=== PATIENT | female | born 1975 | race Caucasian/White ===

== ENCOUNTER 2017-05-26 14:26 | Emergency (ER) | payer BC, OTHER ==
[2017-05-26] MEDS ORDERED: Bicillin LA 1.2 MILLION UNITS/2 ML SYRINGE ONE (14:44)
== END 2017-05-26 14:57 | disposition home or self-care (01) ==
LOC: BURERS 14:26
DX: J02.0 Streptococcal pharyngitis (principal); G43.909 Migraine, unspecified, not intractable, without status migrainosus
CPT/HCPCS: 96372; J0561

== ENCOUNTER 2018-09-28 10:09 | Emergency (ER) | payer BC, OTHER ==
[2018-09-28] MEDS ORDERED: AMOXicillin 250 MG CAP ONE (11:02)
== END 2018-09-28 11:07 | disposition home or self-care (01) ==
LOC: BURERS 10:09
DX: J20.9 Acute bronchitis, unspecified (principal); G43.909 Migraine, unspecified, not intractable, without status migrainosus
CPT/HCPCS: 87804; 94640; J7620

== ENCOUNTER 2019-03-17 12:52 | Emergency (ER) | payer BC ==
[2019-03-17 13:15] LABS: Bilirubin Negative (Negative); Clarity Slightly Cloudy (Clear); Glucose, Urine (Dipstick) Negative (Negative); Leukocyte Small (Negative); Nitrite Negative (Negative); Protein, Urine (Dipstick) Negative (Neg-Trace); Urobilinogen 0.2 mg/dL (0.2-1.0)
[2019-03-17 13:16] LABS: Bacteria/HPF 1+ HPF (None Seen); Blood, Urine Small (Negative); RBC/HPF 0-3 HPF (0-3); WBC/HPF 0-3 HPF (0-3)
[2019-03-17] MEDS ORDERED: Ondansetron PF 4 MG/2 ML Vial ONE (13:38)
[2019-03-17] MEDS ORDERED: Ketorolac Tromethamine 30 MG/ML VIAL ONE (13:38)
[2019-03-17 14:10] LABS: ALT (SGPT) 20 U/L (8-55); AST (SGOT) 14 U/L (5-34); Albumin 4.5 g/dL (3.5-5.0); Alkaline Phosphatase 106 U/L (40-150); Anion Gap 15 mmol/L (10-20); BUN (Urea Nitrogen) 14 mg/dL (7.0-18.7); Bilirubin, Total 0.7 mg/dL (0.2-1.2); Calc. Creatinine Clearance 0 mL/min (70-130); Calcium 10.1 mg/dL (7.8-10.44); Carbon Dioxide 25 mmol/L (22-29); Chloride 103 mmol/L (98-107); Estimated GFR-MDRD 88; Globulin 3.7 g/dL (2.4-3.5); Glucose 102 mg/dL (70-105); Potassium 3.9 mmol/L (3.5-5.1); Protein, Total 8.2 g/dL (6.0-8.3); Sodium 139 mmol/L (136-145)
[2019-03-17] MEDS ORDERED: Morphine 4 MG/ML VIAL ONE ×2 (14:16→16:32)
[2019-03-17 14:51] LABS: #Eosinphils 0.1 thou/uL (0.0-0.7); #Lymphocytes 1.9 thou/uL (1.20-3.40); #Monocytes 1.1 thou/uL (0.11-0.59); %Basophils 0.3 % (0.0-1.0); %Eosinophils 0.5 % (0.0-10.0); %Lymphocytes 12.6 % (21.0-51.0); %Monocytes 7.2 % (0.0-10.0); %Neutrophils 79.4 % (42.0-75.0); Mean Corpuscular HGB CONC 34.2 g/dL (32.0-36.0); Mean Corpuscular Hemoglobin 29.4 pg (27.0-31.0); Mean Platelet Volume 9.1 fL (7.4-10.4); Platelet Count 238 thou/uL (130-400); RBC Distribution Width 12.3 % (11.5-14.5); Red Blood Cell (RBC) Count 4.75 mill/uL (4.20-5.40); White Blood Cell (WBC) Count 15.1 thou/uL (4.8-10.8)
--- NOTE | 2019-03-17 16:22 | CT ---
CT ABDOMEN AND PELVIS WITHOUT CONTRAST: Date: 03/17/19 HISTORY: Left lower quadrant pain. Patient has had previous appendectomy and cholecystectomy. FINDINGS: Absence of oral and IV contrast reduces the sensitivity of exam, particularly for evaluation of solid organs and bowel. The lung bases are clear. The liver demonstrates decreased attenuation compared to the spleen consist ent with fatty infiltration. No free air or free fluid is seen in the abdomen or pelvis. There are po stop changes of cholecystectomy and appendectomy. No calculi seen in the kidneys, ureters, or urinary bladder. No hydroureteronephrosis is noted on either side. There is colonic diverticulosis with pericolonic inflammatory changes in the right lower quadrant. No abnormally loculated fluid collection is seen. 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 There are degenerative changes in the spine . IMPRESSION: 1. Sigmoid diverticulitis in the left lower quadrant. 2. No CT evidence of urinary tract calculi or obstruction. 3. Fatty liver. POS: [facility]
[2019-03-17] MEDS ORDERED: metroNIDAZOLE 250 MG TAB ONE (16:32)
[2019-03-17] MEDS ORDERED: Ciprofloxacin 500 MG TAB ONE (16:32)
== END 2019-03-17 16:48 | disposition home or self-care (01) ==
LOC: BURERS 12:52
DX: K57.32 Diverticulitis of large intestine without perforation or abscess without bleeding (principal); E86.0 Dehydration; R41.82 Altered mental status, unspecified
CPT/HCPCS: 74176; 80053; 81003; 81015; 85025; 96361; 96374; 96375; 96376; J1885; J2270; J2405